=== PATIENT | female | born 1965 | race Caucasian/White ===

== ENCOUNTER 2017-07-24 13:03 | Emergency (ER) | payer OTHER ==
[~2017-07-24] VITALS: Ht 162.6 cm; Wt 85.0 kg
[2017-07-24 13:04] VITALS: BP 186/98; PULSE 74; RESP 16; TEMP 97.6; O2SAT 100
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
[2017-07-24] MEDS ORDERED: ROBA500T PO (15:08)
[2017-07-24] MEDS ORDERED: IBUP-232 PO (15:08)
== END 2017-07-24 15:16 | disposition home or self-care (01) ==
LOC: NEPK 13:03
DX: S00.33XA Contusion of nose, initial encounter (principal); S16.1XXA Strain of muscle, fascia and tendon at neck level, initial encounter; V43.53XA Car driver injured in collision with pick-up truck in traffic accident, initial encounter
CPT/HCPCS: 70486; 99284

== ENCOUNTER 2018-02-24 16:28 | Emergency (ER) | payer SELFPAY ==
[~2018-02-24] VITALS: Ht 162.6 cm; Wt 80.5 kg
[~2018-02-24 16:28] MED LIST: IBUP-232 PO; ROBA500T PO
[2018-02-24 16:45] VITALS: BP 172/85; PULSE 80; RESP 18; TEMP 98.4; O2SAT 100
[2018-02-24] MEDS ORDERED: IBUPROFEN 800 MG TAB PO ONE (17:15)
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
[2018-02-24] MEDS ORDERED: IBUP1TAB7 PO (17:58)
--- NOTE | 2018-02-24 17:59 | PD ---
HPI Chief Complaint: Injury Time Seen by Provider: 16:53 Travel History International Travel<30 days: No Contact w/Intl Traveler<30days: No Traveled to known affect area: No History of Present Illness HPI 53-year-old female presents to the emergency department with complaint of left ankle pain and swelling, left great toe pain, and an abrasion to her right knee after slipping on a wet floor and falling today. She said she landed on her knee and twisted her ankle. Denies hitting her head or loss of consciousness. Denies neck pain or back pain. Denies paresthesias, loss of sensation to the affected extremities. Denies being up-to-date on her tetanus vaccination and does not want it updated. Rates pain /. Has not taken any medication or tried treatments to alleviate her symptoms. Ankle pain is to the lateral aspect. Worse with palpation. Better at rest. Primary care provider is in [place]. Allergies to Ceclor and aspirin, but says she can take ibuprofen. Denies significant past medical history. Has no other medical complaints. No other modifying factors or associated signs and symptoms. [facility] Social History Alcohol Use: No Tobacco Use: No Substance Use: No Allergies-Medications (Allergen,Severity, Reaction): Coded Allergies: aspirin (Verified Allergy, Mild, Rash, 07/24/17) Reported Meds & Prescriptions Reported Meds & Active Scripts Active Ibuprofen 800 Mg Tab 800 Mg PO Q6HR PRN Ibuprofen 600 Mg Tab 600 Mg PO Q8HR PRN Robaxin (Methocarbamol) 500 Mg Tab 500 Mg PO QID PRN Review of Systems Except as stated in HPI: all other systems reviewed are Neg Physical Exam Narrative GENERAL: Well-nourished, well-developed female patient, in no acute distress SKIN: Warm and dry. Abrasion noted to right knee. HEAD: Atraumatic. Normocephalic. EYES: Pupils equal and round. No scleral icterus. No injection or drainage. ENT: Mucosa pink and moist. Airway patent. NECK: Trachea midline. CARDIOVASCULAR: Regular rate. RESPIRATORY: No accessory muscle use. GASTROINTESTINAL: Flat. MUSCULOSKELETAL: Left ankle with point tenderness to the lateral zone with palpation; edema noted to the lateral aspect; without erythema, ecchymosis; no obvious deformity. Left great toe with bruising noted just below the nail bed; without erythema, edema; with tenderness on palpation. Left lower extremity is supple and nontense with 2+ pedal pulse and sensory intact. Right knee with full range of motion was sensory intact without erythema, edema, ecchymosis; abrasion noted; without tenderness on palpation. no obvious deformities. No clubbing. No cyanosis. No edema. NEUROLOGICAL: Awake and alert. Oriented 3. No obvious cranial nerve deficits. Motor grossly within normal limits. Normal speech. PSYCHIATRIC: Appropriate mood and affect; insight and judgment normal. Data Data Last Documented VS Vital Signs Date Time Temp Pulse Resp B/P (MAP) Pulse Ox O2 Delivery O2 Flow Rate FiO2 02/24/18 16:45 98.4 80 18 172/85 (114) 100 Orders Orders Ibuprofen (Motrin) (02/24/18 17:15) Ankle, Complete ([id number]) (02/24/18 17:05) Foot, Complete ([id number]) (02/24/18 17:05) Crutches (02/24/18 17:05) Splint Or Brace Apply/Monitor (02/24/18 17:59) Ed Discharge Order (02/24/18 17:59) [facility] Medical Decision Making Medical Screen Exam Complete: Yes Emergency Medical Condition: Yes Medical Record Reviewed: Yes Differential Diagnosis Fracture, abrasion, contusion, sprain Narrative Course 53-year-old female with left ankle and foot injury after mechanical slip and fall. She denies hitting her head or loss of consciousness. Denies neck pain or back pain. Has an abrasion to her right knee and I do not suspect fracture dislocation and feel that imaging is not necessary and the patient agrees. Left ankle x-ray, left foot x-ray, ibuprofen ordered. 1755: Left ankle and foot x-ray conclude: Foot X-Ray 02/24/181704 Signed Impressions: Service Date/Time: Saturday, February 24, 2018 17:13 - CONCLUSION: 1. No acute fracture or dislocation. Carlos Marcus MD Ankle X-Ray 02/24/181704 Signed Impressions: Service Date/Time: Saturday, February 24, 2018 17:09 - CONCLUSION: 1. No acute fracture or dislocation. Carlos Marcus MD Discussed x-ray findings with the patient. Crutches, sea bandage and ankle stirrup splint provided for support. Insect patient to follow-up if symptoms persist greater than 7-10 days. Ibuprofen prescribed for home. Instructed patient to follow up with primary care provider. Patient verbalizes understanding and agreement with treatment plan. Patient is medically cleared and stable for discharge. Discussed reasons to return to the emergency department. Patient agrees with treatment plan. The patients vital signs are stable and the patient is stable for outpatient follow-up and treatment. Patient discharged home, stable and in no acute distress. Diagnosis Primary Impression: Left ankle injury Qualified Codes: S99.912A - Unspecified injury of left ankle, initial encounter Additional Impression: Injury of left great toe Qualified Codes: S99.922A - Unspecified injury of left foot, initial encounter Referrals: [facility] Primary Care Physician Patient Instructions: Ankle Sprain (ED), Crutch Instructions (ED), General Instructions Additional Instructions: Tylenol or ibuprofen as directed and as needed for pain and inflammation Rest, ice, compress, and elevate extremity to decrease pain and inflammation Ankle Brace for support Crutches for support Avoid aggravating activity; increase activity as tolerated Follow-up with primary care provider Return to the emergency department immediately with worsening of symptoms Med/Other Pt SpecificInfo: Prescription(s) given Scripts Ibuprofen (Ibuprofen) 800 Mg Tab 800 MG PO Q6HR Y for PAIN, #30 TAB 0 Refills Prov: Stacey Prater 02/24/18 Disposition: 01 DISCHARGE HOME Condition: Stable Stacey Prater February 24, 2018 17:59
== END 2018-02-24 18:22 | disposition home or self-care (01) ==
LOC: NEPD 16:28
DX: S99.912A Unspecified injury of left ankle, initial encounter (principal); S99.922A Unspecified injury of left foot, initial encounter; S80.211A Abrasion, right knee, initial encounter; W01.0XXA Fall on same level from slipping, tripping and stumbling without subsequent striking against object, initial encounter
CPT/HCPCS: 73610; 73630; 99283; E0113; L1906